=== PATIENT | male | born 1995 | race Two or more races ===

== ENCOUNTER 2025-04-27 00:02 | Emergency (ER) | payer MEDICAID, SELFPAY ==
[2025-04-27 00:03] VITALS: BMI 29.7
[2025-04-27 00:12] VITALS: BP 165/92; PULSE 79; RESP 18; TEMP 36.8; O2SAT 97
--- NOTE | 2025-04-27 00:36 | XR_ITS ---
Examination: CT soft tissue neck without intravenous contrast, 2-D sagittal reconstructions. 2-D coronal reconstructions. 3-D reconstructions. Date and time of exam: April 27, 2025, 0055 hours INDICATIONS: Patient swallowed fishbone today CTDI: vol (mGy): 19 DLP: (mGycm): 535 Technique: Multiple 1.25 mm axial sections of the soft tissue neck without intravenous contrast have been obtained. 2-D sagittal and coronal reconstructions have been obtained. 3-D reconstructions have been obtained. Low dose protocols were performed. One or more of the following dose reduction techniques were used; automated exposure control, adjustment of the mA and/or KV according to patient size, use of iterative reconstruction technique. Findings: Maxillary antra are clear Symmetrical nasopharynx oropharynx No opaque foreign body depicted The larynx appears normal Thyroid lobes are not enlarged Tracheal airway appears clear Normal epiglottis Dental caries IMPRESSION: No opaque foreign body is depicted
--- NOTE | 2025-04-27 00:55 | PD.EDDENTL ---
ED Dental RME/HPI General Chief complaint: Dental/Oral/Throat Stated complaint: FEELS SOMETHING STUCK IN THROAT Time Seen by Provider: 04/27/25 00:36 Arrival date/time: 04/27/25 00:02 29M with no significant PMH presents to ED with sensation of something stuck in throat after he ate some fish (possibly with bones) about 4 days ago. Patient has been able to pass food/fluid, though some intermittent N/V. Limitations: no limitations Related Data Previous Rx's ?Medication ?Instructions ?Recorded docusate sodium 100 mg capsule 100 mg PO BID #20 caps 08/27/23 (Colace) hydrocodone 5 mg-acetaminophen 325 1 tab PO Q8H PRN pain (scale score 08/27/23 mg tablet 7-10) #10 tabs ibuprofen 600 mg tablet 600 mg PO Q8H PRN pain (scale 08/27/23 score 4-6) #15 tabs Allergies Allergy/AdvReac Type Severity Reaction Status Date / Time No Known Allergies Allergy Verified 04/27/25 00:03 Review of Systems Review of Systems Systems Reviewed: All systems reviewed, normal except as documented ENT Ears, Nose, Mouth, and Throat: Reports as per HPI and Reports sore throat (sensation something is there) Past Medical History Past Medical History NEUROLOGIC: Negative Neurological Disorders or Seizures CARDIAC: Positive Cardiac Disorders, Hypercholesterolemia (no meds was diagnosed 2 months ago, diet controlled) and Hypertension (no meds was diagnosed 2 months ago,diet controlled); Negative Congestive Heart Failure RESPIRATORY: Negative Chronic Obstructive Pulmonary Disease (COPD) or Asthma GASTROINTESTINAL: Positive Gastrointestinal Disorders (was told 2 months ago liver inflamed) GENITOURINARY: Negative Genitourinary Disorders or Renal Disease MUSCULOSKELETAL: Negative Musculoskeletal Disorders ENDOCRINE: Negative Endocrine Disorders, Diabetes Mellitus Type 1 or Diabetes Mellitus Type 2 (prediabetic) HEMATOLOGIC: Negative Blood Disorders or Sickle Cell Disease OTHER HISTORY: Negative Autoimmune Disease, Blood Transfusions, Blood Transfusion Reaction or Anesthesia Reactions Family History FAMILY HISTORY: Negative Family Psychiatric Problems, Family Respiratory Disorders, Family Cardiac Disorders, Family Gastrointestinal Problems, Family Cancer, Family Surgery or Family Anesthesia Reaction Social History SMOKING STATUS: Never smoker SUBSTANCE USE: does not use ED Exam General Limitations: Present no limitations General appearance: Present alert and in no apparent distress Head Head exam: Present atraumatic ENT ENT exam: Present normal exam, normal oropharynx and mucous membranes moist Neck Neck exam: Present normal inspection, full ROM and trachea midline Chest Chest inspection: Present normal inspection and symmetric chest wall rise Neurological Exam Neurological exam: Present alert and oriented X3 Psychiatric Psychiatric exam: Present normal affect and normal mood Skin Skin exam: Present warm, dry, intact and normal color Course Quality Measures none Orders Category Date Time Status CT soft tissue neck wo con Stat Exams 04/27/25 00:36 Taken Vital Signs Vital signs: Vital Signs Temperature 98.3 F 04/27/25 00:12 Pulse Rate 79 04/27/25 00:12 Respiratory Rate 18 04/27/25 00:12 Blood Pressure 165/92 H 04/27/25 00:12 Pulse Oximetry (%) 97 04/27/25 00:12 Oxygen Delivery Method Room Air 04/27/25 00:12 O2 at 97% on RA and WNLs Dental / Oral MDM Narrative MDM Narrative:: 29M with no significant PMH presents to ED with sensation of something stuck in throat after he ate some fish (possibly with bones) about 4 days ago. Patient has been able to pass food/fluid, though some intermittent N/V. Physical exam reveals clear oropharynx. Normal WOB. Patient is afebrile, calm, and alert. CT telerad unremarkable. [employer] given. Patient data External records reviewed:: [facility] previous records Clinical information provided by:: patient Social determinants that could affect healthcare access:: none Patient has the following chronic illnesses:: none How is presenting disease/condition affected by chronic disease/condition?: no chronic disease Evaluation data The following diagnostics were reviewed and interpreted by me:: radiology exam(s) Lab and/or radiology exams considered but not ordered:: ordered Interpretation Summary: above Medications / Prescriptions Medications or Prescriptions considered but not ordered:: not ordered Medication administrations:: n/a Consultations Consultation(s) initiated? (list below): No Diagnosis Dental Differential Diagnosis: gingival abscess, dental caries, toothache, dental abscess, fracture of tooth, aphthous ulcer and other (FB throat, throat irritation, sensation of something in throat) Most likely diagnosis given after review of the tests above:: FB sensation in throat Admission Indicated Admission indicated?: not indicated Admission Request Was there a request for admission?: No Disposition Plan Disposition Plan: Discharge Discharge Attestation Discharge Attestation: The patient and all family members were given an opportunity to ask questions and understood the discharge instructions. Discharge instructions specifically effects, indications for sooner follow up or return to the emergency department, and the expected course of current diagnosis. Patient condition: Stable Discharge Plan Plan Patient Disposition: HOME (Self Care) Discharge Disposition comment: Stable Prescriptions/Referrals Prescriptions/Med Rec: No Action docusate sodium [Colace] 100 mg capsule 100 mg PO BID Qty: 20 0RF ibuprofen 600 mg tablet 600 mg PO Q8H PRN (Reason: pain (scale score 4-6)) Qty: 15 0RF hydrocodone-acetaminophen 5-325 mg tablet 1 tab PO Q8H MDD 3 PRN (Reason: pain (scale score 7-10)) Qty: 10 0RF Problem List Clinical Impression: Foreign body sensation in throat Patient/Caregiver Discharge Instructions Education Materials: Treating Dysphagia, Understanding Dysphagia Additional Instructions: Please follow-up with PCP within 24-48 hours and return immediately if symptoms worsen. Print Language: Japanese Stand Alone Forms: Patient Portal Info Letter CHRISTIANA/SARAH Supervising Physician CHRISTIANA/SARAH Supervising Physician: Dr. Bui
--- NOTE | 2025-04-27 01:18 | PRELIM_ITS ---
CT scan of the neck without intravenous contrast (axial sections with sagittal and coronal reformats). April 27, 2025 0053 hours Clinical History: May have swallowed fish bone Comparison: None Findings: No radiopaque foreign body noted along the aerodigestive tract. Under limitations of this study without IV contrast there is no definite worrisome mucosal abnormality of the aerodigestive tract. The vocal cords are symmetric and normal in appearance. The bilateral parotid and submandibular glands as well as thyroid are unremarkable. There is no cervical lymphadenopathy. No soft tissue collection/abscess noted within the neck. Visualized orbits and intracranial contents are unremarkable. Visualized lungs are unremarkable. Visualized paranasal sinuses and tympanomastoid cavities are clear. There is no acute osseous abnormality. There is severe erosion of the left lower first molar. Impression: No radiopaque foreign body noted within the neck. Severe erosion of the left lower first molar. Recommend patient follow-up with dentist. Report Electronically Signed By: Scottie Newman 04/27/2025 1:17:45 AM [EST]
== END 2025-04-27 01:29 | disposition home or self-care (01) ==
PROVIDERS: Emergency Provider Emergency Medicine; PCP Family Medicine
DX: R13.10 Dysphagia, unspecified (principal)
CPT/HCPCS: 70490; 99282